=== PATIENT | female | born 1970 | race Caucasian/White ===

== ENCOUNTER → 2019-03-06 | Outpatient (CLI) | payer BC ==
[~2019-03-06] MED LIST: ADVAIR; ALBU90I INH; ALBU90OI INH; ALBU90OI6 INH; ALPR.25 PO; ALPR.5; ALPR.5 PO; AMIT50; AMOX250 PO; AZIT250 PO; Amoxicillin500 MG PO; BISA10S PR; BUPR150ER PO; BUSP10; BUSP10 PO; BUSP15 PO; BUSPAR; CIPR500 PO; CODGUAEL PO; COPEGUS; CRUTCH4 USE; CYCL10 PO; DIAZ5 PO; DOXY100 PO; EFFEXOR PO; ELET40TA; ELET40TA PO; ESCI20 PO; FAMO20 PO; FAMO40 PO; FLUSAL5005 IH; FURO20; GABA600 PO; GUAI600ER PO; HYDACE5 PO; HYDACE5325 PO; HYDACE7.5 PO; HYDR1TAB94 PO; IBUP200 PO; IBUP800 PO; INTE3SY; KETO10 PO; Keflex500 MG PO; MAGCIT300 PO; METO50ER PO; METPRE4DP PO; NAPR500 PO; OMEP20ER PO; OXYACE5T PO; OXYC10TA19 PO; PENVK500 PO; PRILOSEC PO; PROCODE120 PO; PROM25 PO; PROP10 PO; PROP160ER PO; PROP20; PROPRANOLOL; PROPRANOLOL PO; RANI150; RANI150 PO; RISP.5; RXCYCL10 PO; RXHYDACE PO; RXOXYACE PO; RXPROCODSY PO; RXPROM25 PO; RXTRAM50 PO; SERT100; SUMA25 PO; SUMA6I SC; TOPI25 PO; TRAM50 PO; Ultram50 MG PO; VENL75; VENL75ER PO; XANAX PO; [UNRECOGNIZED DRUG - OTHER]; [UNRECOGNIZED DRUG - OTHER]; [UNRECOGNIZED DRUG - OTHER]
[2019-03-08 14:52] LABS: Stool Occult Bld Immuno 1 Positive (NEGATIVE); Stool Occult Bld Immuno 2 Positive (NEGATIVE); Stool Occult Bld Immuno 3 Positive (NEGATIVE)
== END | disposition home or self-care (01) ==
LOC: LAB 14:30 → LAB SHORT 14:30
PROVIDERS: Nurse Practitioner Family
DX: K92.1 Melena (principal)
CPT/HCPCS: G0328

== ENCOUNTER 2019-05-30 07:32 | Day surgery (SDC) | payer BC ==
[~2019-05-30] VITALS: Ht 160 cm; Wt 97.6 kg
[~2019-05-30 07:32] MED LIST changes: +Augmentin 875-1 EACH PO; +CITRATE OF MAG296 ML PO
--- NOTE | 2019-05-30 08:27 | NUR ---
05/30/19 0827 Gricel Felder CALL LIGHT WITHIN REACH. FAMILY AT BEDSIDE
== END 2019-05-30 10:15 | disposition home or self-care (01) ==
LOC: ORSCSDS 07:32
PROVIDERS: Student in an Organized Health Care Education/Training Program
PROC: 0DBH8ZX Excision of Cecum, Via Natural or Artificial Opening Endoscopic, Diagnostic (ICD-10-PCS; principal; 2019-05-30 09:00)
PROC: 0DBN8ZX Excision of Sigmoid Colon, Via Natural or Artificial Opening Endoscopic, Diagnostic (ICD-10-PCS; principal; 2019-05-30 09:00)
DX: K92.1 Melena (principal); D12.0 Benign neoplasm of cecum; K63.5 Polyp of colon; K64.8 Other hemorrhoids; K64.4 Residual hemorrhoidal skin tags; G47.33 Obstructive sleep apnea (adult) (pediatric); J45.909 Unspecified asthma, uncomplicated; E66.01 Morbid (severe) obesity due to excess calories; Z68.41 Body mass index [BMI] 40.0-44.9, adult; Z79.899 Other long term (current) drug therapy; F41.8 Other specified anxiety disorders
CPT/HCPCS: 88305; J2704; J7120

== ENCOUNTER 2019-07-31 16:48 | Emergency (ER) | payer BC ==
[~2019-07-31] VITALS: Ht 160 cm; Wt 98.4 kg
[2019-07-31] MEDS ORDERED: ESCI20 (17:28)
[2019-07-31] MEDS ORDERED: Robaxin750 MG PO (17:28)
[2019-07-31 18:25] LABS: Source, Urine Clean Catch
[2019-07-31 18:27] LABS: Bilirubin, Urine Neg (Neg); Blood, Urine Neg (Neg); Glucose Qualitative, Urine Neg (Neg); Ketones, Urine Neg (Neg); Leukocyte Esterase, Urine Neg (Neg); Nitrite, Urine Neg (Neg); Protein, Urine Neg (Neg); Urobilinogen, Urine NORM (Normal)
[2019-07-31 18:33] LABS: Appearance, Urine Clear (Clear); Color, Urine Yellow (P-Yellow)
[2019-07-31 18:37] LABS: BASOPHILS ABSOLUTE AUTO 0.03 K/mm3 (0.00-0.23); BASOPHILS PERCENT AUTO 0 % (0-2); EOSINOPHILS PERCENT AUTO 2 % (0-6); Hematocrit 38.3 % (33.0-51.0); Hemoglobin 12.6 g/dL (11.5-16.0); IMMATURE GRAN ABSOLUTE AUTO 0.03 K/mm3 (0.00-0.10); IMMATURE GRAN PERCENT AUTO 0 % (0-1); LYMPHOCYTES ABSOLUTE AUTO 3.33 K/mm3 (0.84-5.20); LYMPHOCYTES PERCENT AUTO 26 % (21-46); MONOCYTES ABSOLUTE AUTO 0.63 K/mm3 (0.16-1.47); MONOCYTES PERCENT AUTO 5 % (4-13); Mean Corpuscular HGB 30.7 pg (26.0-34.0); Mean Corpuscular HGB Conc 32.9 g/dL (31.5-36.5); Mean Corpuscular Volume 93 fL (80-100); Mean Platelet Volume 10.4 fL (9.1-12.4); NEUTROPHILS ABSOLUTE AUTO 8.72 K/mm3 (1.96-9.15); NEUTROPHILS PERCENT AUTO 68 % (41-73); Platelet Count 295 K/mm3 (150-400); RDW Coefficient Variation 12.4 % (11.7-14.2); RDW Standard Deviation 42.3 fL (35.1-46.3); Red Blood Cell Count 4.11 M/mm3 (3.80-5.20); White Blood Cell Count 12.94 K/mm3 (4.00-11.30)
[2019-07-31 19:03] LABS: Alanine Aminotransfer (ALT/SGP 53 U/L (12-78); Albumin, Blood 3.5 g/dL (3.4-5.0); Albumin/Globulin Ratio 0.8 (0.8-1.8); Alk Phos 118 U/L (50-136); Anion Gap 9 mmol/L (6-16); Aspartate Aminotrans (AST/SGOT 25 U/L (12-37); Bilirubin, Total 0.4 mg/dL (0.1-1.0); Blood Urea Nitrogen 13 mg/dL (8-24); Bun/Creatinine Ratio 15.8 (12.0-20.0); CO2, Blood 23 mmol/L (21-32); Calcium, Blood 8.8 mg/dL (8.5-10.1); Chloride, Blood 107 mmol/L (98-108); Creatinine, Blood 0.83 mg/dL (0.40-1.00); Globulin, Blood 4.3 g/dL (2.2-4.0); Glomerular Filtration Rate >60 (60-); Glucose, Blood 79 mg/dL (70-99); Potassium, Blood 3.6 mmol/L (3.5-5.5); Sodium, Blood 139 mmol/L (136-145); Total Protein, Blood 7.8 g/dL (6.4-8.2)
[2019-07-31] MEDS ORDERED: Percocet 5-3251 EACH PO (19:38)
[2019-07-31] MEDS ORDERED: ONDA4ODT MM (19:38)
== END 2019-07-31 21:06 | disposition home or self-care (01) ==
LOC: ER 16:48
PROVIDERS: Physician Assistant
DX: K42.9 Umbilical hernia without obstruction or gangrene (principal); F41.9 Anxiety disorder, unspecified; Z79.899 Other long term (current) drug therapy
CPT/HCPCS: 36415; 74176; 80053; 81003; 83690; 85025; 96361; 96374; 96375; 99284-25; J1170; J2405; J3010; J7030

== ENCOUNTER 2019-12-12 09:35 | Day surgery (SDC) | payer BC ==
[~2019-12-12] VITALS: Ht 160 cm; Wt 98.4 kg
[~2019-12-12 09:35] MED LIST changes: +CARAFATE1 GM; +ESCI20; +Imitrex100 MG PO; +MELO7.5 PO; +Norco 5-325 Ta1 EACH PO; +OMEP20ER; +ONDA4ODT MM; +Percocet 5-3251 EACH PO; +Robaxin750 MG PO
== END 2019-12-12 11:40 | disposition home or self-care (01) ==
LOC: ORSCSDS 09:35
PROVIDERS: Student in an Organized Health Care Education/Training Program
PROC: 0DB88ZX Excision of Small Intestine, Via Natural or Artificial Opening Endoscopic, Diagnostic (ICD-10-PCS; principal; 2019-12-12 11:00)
PROC: 0DB58ZX Excision of Esophagus, Via Natural or Artificial Opening Endoscopic, Diagnostic (ICD-10-PCS; principal; 2019-12-12 11:00)
PROC: 0DB68ZX Excision of Stomach, Via Natural or Artificial Opening Endoscopic, Diagnostic (ICD-10-PCS; principal; 2019-12-12 11:00)
DX: R10.9 Unspecified abdominal pain (principal); K58.0 Irritable bowel syndrome with diarrhea; J45.909 Unspecified asthma, uncomplicated; Z86.19 Personal history of other infectious and parasitic diseases; F32.9 Major depressive disorder, single episode, unspecified; K20.9 Esophagitis, unspecified; K44.9 Diaphragmatic hernia without obstruction or gangrene; I10 Essential (primary) hypertension; E66.9 Obesity, unspecified; Z68.38 Body mass index [BMI] 38.0-38.9, adult; Z79.899 Other long term (current) drug therapy
CPT/HCPCS: 88305; 88342; J2405; J2704; J7120

== ENCOUNTER 2019-12-18 17:36 | Emergency (ER) | payer BC | END 2019-12-18 20:28 | disposition home or self-care (01) | LOC: ER 17:36 | DX: R07.9 Chest pain, unspecified (principal); R20.0 Anesthesia of skin; R20.2 Paresthesia of skin; F41.9 Anxiety disorder, unspecified; Z88.8 Allergy status to other drugs, medicaments and biological substances ==

== ENCOUNTER → 2020-01-11 | Outpatient (CLI) | payer BC ==
[~2020-01-11] MED LIST changes: +OMEPRAZOLE MAGN20 MG PO
== END | disposition home or self-care (01) ==
LOC: LAB EV 14:12 → LAB SHORT 14:12
DX: R05 Cough (principal); Z20.828 Contact with and (suspected) exposure to other viral communicable diseases
CPT/HCPCS: U0003

== ENCOUNTER 2020-05-24 19:20 | Emergency (ER) | payer BC ==
[~2020-05-24] VITALS: Ht 160 cm; Wt 95.2 kg
[2020-05-24 19:51] LABS: BASOPHILS ABSOLUTE AUTO 0.02 K/mm3 (0.00-0.23); BASOPHILS PERCENT AUTO 0 % (0-2); EOSINOPHILS ABSOLUTE AUTO 0.16 K/mm3 (0.00-0.68); EOSINOPHILS PERCENT AUTO 2 % (0-6); Hematocrit 37.5 % (33.0-51.0); Hemoglobin 12.8 g/dL (11.5-16.0); IMMATURE GRAN ABSOLUTE AUTO 0.02 K/mm3 (0.00-0.10); IMMATURE GRAN PERCENT AUTO 0 % (0-1); LYMPHOCYTES ABSOLUTE AUTO 2.35 K/mm3 (0.84-5.20); LYMPHOCYTES PERCENT AUTO 28 % (21-46); MONOCYTES ABSOLUTE AUTO 0.81 K/mm3 (0.16-1.47); MONOCYTES PERCENT AUTO 10 % (4-13); Mean Corpuscular HGB 30.7 pg (26.0-34.0); Mean Corpuscular HGB Conc 34.1 g/dL (31.5-36.5); Mean Corpuscular Volume 90 fL (80-100); NEUTROPHILS ABSOLUTE AUTO 5.03 K/mm3 (1.96-9.15); NEUTROPHILS PERCENT AUTO 60 % (41-73); Platelet Count 239 K/mm3 (150-400); RDW Coefficient Variation 12.8 % (11.7-14.2); RDW Standard Deviation 41.8 fL (35.1-46.3); Red Blood Cell Count 4.17 M/mm3 (3.80-5.20); White Blood Cell Count 8.39 K/mm3 (4.00-11.30)
[2020-05-24 20:05] LABS: Alanine Aminotransfer (ALT/SGP 27 U/L (12-78); Albumin, Blood 3.7 g/dL (3.4-5.0); Albumin/Globulin Ratio 0.9 (0.8-1.8); Alk Phos 99 U/L (50-136); Anion Gap 5 mmol/L (6-16); Aspartate Aminotrans (AST/SGOT 17 U/L (12-37); Bilirubin, Total 0.4 mg/dL (0.1-1.0); Blood Urea Nitrogen 14 mg/dL (8-24); Bun/Creatinine Ratio 17.2 (12.0-20.0); CO2, Blood 25 mmol/L (21-32); Calcium, Blood 9.1 mg/dL (8.5-10.1); Chloride, Blood 110 mmol/L (98-108); Creatinine, Blood 0.81 mg/dL (0.40-1.00); Glomerular Filtration Rate >60 (60-); Glucose, Blood 94 mg/dL (70-99); Potassium, Blood 3.6 mmol/L (3.5-5.5); Sodium, Blood 140 mmol/L (136-145); Total Protein, Blood 7.7 g/dL (6.4-8.2)
[2020-09-30] MEDS ORDERED: OMEP20ER PO (12:20)
[2020-09-30] MEDS ORDERED: BENZ100A PO (12:22)
[2020-09-30] MEDS ORDERED: PRED20 PO (12:22)
== END 2020-05-24 21:57 | disposition home or self-care (01) ==
LOC: ER 19:20
PROVIDERS: Physician Assistant
DX: L03.112 Cellulitis of left axilla (principal)
CPT/HCPCS: 36415; 80053; 83605; 85025; 87040; 96365; 96366; 96372-59; 96375; 99284-25; J1200; J1885; J2405; J3030; J7030

== ENCOUNTER 2020-08-03 05:13 | Emergency (ER) | payer BC ==
[~2020-08-03] VITALS: Ht 157.5 cm; Wt 113.4 kg
[2020-08-03] MEDS ORDERED: BENZ100A PO (07:00)
[2020-08-03] MEDS ORDERED: PRED20 PO (07:00)
[2020-09-30] MEDS ORDERED: OMEP20ER PO (12:20)
[2020-09-30] MEDS ORDERED: BENZ100A PO (12:22)
[2020-09-30] MEDS ORDERED: PRED20 PO (12:22)
== END 2020-08-03 07:30 | disposition home or self-care (01) ==
LOC: ER 05:13
DX: J06.9 Acute upper respiratory infection, unspecified (principal); Z79.899 Other long term (current) drug therapy
CPT/HCPCS: 71046; 93005; 93010; 99283-25

== ENCOUNTER 2020-09-09 10:07 | Emergency (ER) | payer BC ==
[~2020-09-09] VITALS: Ht 160 cm; Wt 97.1 kg
[~2020-09-09 10:07] MED LIST changes: +BENZ100A PO; +PRED20 PO
[2020-09-09 11:11] LABS: BASOPHILS ABSOLUTE AUTO 0.05 K/mm3 (0.00-0.23); BASOPHILS PERCENT AUTO 1 % (0-2); EOSINOPHILS ABSOLUTE AUTO 0.15 K/mm3 (0.00-0.68); EOSINOPHILS PERCENT AUTO 2 % (0-6); Hematocrit 42.2 % (33.0-51.0); Hemoglobin 13.8 g/dL (11.5-16.0); IMMATURE GRAN ABSOLUTE AUTO 0.02 K/mm3 (0.00-0.10); IMMATURE GRAN PERCENT AUTO 0 % (0-1); LYMPHOCYTES ABSOLUTE AUTO 2.37 K/mm3 (0.84-5.20); LYMPHOCYTES PERCENT AUTO 27 % (21-46); MONOCYTES ABSOLUTE AUTO 0.58 K/mm3 (0.16-1.47); MONOCYTES PERCENT AUTO 7 % (4-13); Mean Corpuscular HGB 29.6 pg (26.0-34.0); Mean Corpuscular HGB Conc 32.7 g/dL (31.5-36.5); Mean Corpuscular Volume 91 fL (80-100); Mean Platelet Volume 10.4 fL (9.1-12.4); NEUTROPHILS ABSOLUTE AUTO 5.53 K/mm3 (1.96-9.15); NEUTROPHILS PERCENT AUTO 64 % (41-73); Platelet Count 267 K/mm3 (150-400); RDW Coefficient Variation 12.6 % (11.7-14.2); RDW Standard Deviation 41.6 fL (35.1-46.3); Red Blood Cell Count 4.66 M/mm3 (3.80-5.20)
[2020-09-09 11:33] LABS: Alanine Aminotransfer (ALT/SGP 27 U/L (12-78); Albumin, Blood 3.8 g/dL (3.4-5.0); Albumin/Globulin Ratio 0.9 (0.8-1.8); Alk Phos 86 U/L (50-136); Anion Gap 3 mmol/L (6-16); Aspartate Aminotrans (AST/SGOT 19 U/L (12-37); Bilirubin, Total 0.5 mg/dL (0.1-1.0); Blood Urea Nitrogen 13 mg/dL (8-24); Bun/Creatinine Ratio 14.7 (12.0-20.0); CO2, Blood 28 mmol/L (21-32); Calcium, Blood 9.4 mg/dL (8.5-10.1); Chloride, Blood 109 mmol/L (98-108); Creatinine, Blood 0.89 mg/dL (0.40-1.00); Globulin, Blood 4.3 g/dL (2.2-4.0); Glomerular Filtration Rate >60 (60-); Glucose, Blood 94 mg/dL (70-99); Potassium, Blood 4.1 mmol/L (3.5-5.5); Sodium, Blood 140 mmol/L (136-145); Total Protein, Blood 8.1 g/dL (6.4-8.2)
[2020-09-30] MEDS ORDERED: OMEP20ER PO (12:20)
[2020-09-30] MEDS ORDERED: BENZ100A PO (12:22)
[2020-09-30] MEDS ORDERED: PRED20 PO (12:22)
== END 2020-09-09 14:45 | disposition home or self-care (01) ==
LOC: ER 10:07
PROVIDERS: Physician Assistant
DX: G43.909 Migraine, unspecified, not intractable, without status migrainosus (principal)
CPT/HCPCS: 36415; 70450; 80053; 85025; 93005; 93010; 96374; 96375; 99284-25; J0780; J1200

== ENCOUNTER → 2020-09-10 | Outpatient (CLI) | payer BC ==
[2020-09-12 13:38] LABS: Adenovirus F 40/41 Not Detected (NOT DETECT); Astrovirus Not Detected (NOT DETECT); Campylobacter Sp Not Detected (NOT DETECT); Cryptosporidium Not Detected (NOT DETECT); Cyclospora Cayetanensis Not Detected (NOT DETECT); E. Coli O157 Not Detected (NOT DETECT); Entamoeba Histolytica Not Detected (NOT DETECT); Enteroaggregative E. coli-EAEC Not Detected (NOT DETECT); Enteropathogenic E. coli-EPEC Detected (NOT DETECT); Enterotoxigenic E. coli-ETEC Not Detected (NOT DETECT); Giardia Lamblia Not Detected (NOT DETECT); Norovirus GI/GII Not Detected (NOT DETECT); Plesiomonas Shigelloides Not Detected (NOT DETECT); Rotavirus A Not Detected (NOT DETECT); Salmonella Sp Not Detected (NOT DETECT); Sapovirus Not Detected (NOT DETECT); Shiga Toxin-prod E. coli-STEC Not Detected (NOT DETECT); Shigella/Enteroin E. coli-EIEC Not Detected (NOT DETECT); Vibrio Cholerae Not Detected (NOT DETECT); Vibrio Sp Not Detected (NOT DETECT); Yersinia Enterocolitica Not Detected (NOT DETECT)
== END | disposition home or self-care (01) ==
LOC: LAB 21:00 → LAB SHORT 21:00 → LAB FUT 09-07 14:55
PROVIDERS: Student in an Organized Health Care Education/Training Program
DX: R19.7 Diarrhea, unspecified (principal)
CPT/HCPCS: 0097U; 83993

== ENCOUNTER 2020-10-05 08:10 | Day surgery (SDC) | payer BC ==
[~2020-10-05] VITALS: Ht 160 cm; Wt 98.0 kg
--- NOTE | 2020-10-05 10:11 | NUR ---
PATIENT ALERT, BREATHING RA, NO C/O.
--- NOTE | 2020-10-05 10:32 | NUR ---
Discharge instructions reviewed with patient. Patient verbalizes understanding. Copy given to patient to take home. Dr. Mancia spoke to patient at bedside about activity limitations and dressings.
--- NOTE | 2020-10-05 10:37 | NUR ---
PATIENT UP TO DRESS. STATES SHE HAS NUMBNESS IN HER HAND, BUT ABLE TO MOVE ALL HER FINGERS. DR. AGUILERA ASSESSED HER ARM WHEN HE WAS AT BEDSIDE POST-OP GIVING PATIENT DISCARGE INSTRUCTIONS. DAUGHTER TO DRIVE HOME.
--- NOTE | 2020-10-06 14:57 | NUR ---
10/06/20 1457 Dominique Eddy LATE ENTRY: TOMAS GREGORY RN, MONITORED PT DURING CASE.
== END 2020-10-05 10:40 | disposition home or self-care (01) ==
LOC: ORSCMMR 08:10 → ORD 10:00 → ORSCMMR 10:00
PROVIDERS: Surgery
PROC: 0JBH0ZZ Excision of Left Lower Arm Subcutaneous Tissue and Fascia, Open Approach (ICD-10-PCS; principal; 2020-10-05 10:00)
DX: D17.22 Benign lipomatous neoplasm of skin and subcutaneous tissue of left arm (principal); E78.5 Hyperlipidemia, unspecified; G47.33 Obstructive sleep apnea (adult) (pediatric); F43.10 Post-traumatic stress disorder, unspecified; B19.20 Unspecified viral hepatitis C without hepatic coma; J45.909 Unspecified asthma, uncomplicated; Z79.899 Other long term (current) drug therapy
CPT/HCPCS: 88304; J0690; J1100; J2250; J2405; J2704; J3010; J7120

== ENCOUNTER 2021-03-08 17:49 | Emergency (ER) | payer BC ==
[~2021-03-08] VITALS: Ht 157.5 cm; Wt 95.2 kg
[2021-03-08 18:48] LABS: BASOPHILS ABSOLUTE AUTO 0.05 K/mm3 (0.00-0.23); BASOPHILS PERCENT AUTO 0 % (0-2); EOSINOPHILS ABSOLUTE AUTO 0.22 K/mm3 (0.00-0.68); EOSINOPHILS PERCENT AUTO 2 % (0-6); Hematocrit 38.5 % (33.0-51.0); Hemoglobin 13.1 g/dL (11.5-16.0); IMMATURE GRAN ABSOLUTE AUTO 0.03 K/mm3 (0.00-0.10); IMMATURE GRAN PERCENT AUTO 0 % (0-1); LYMPHOCYTES ABSOLUTE AUTO 4.59 K/mm3 (0.84-5.20); LYMPHOCYTES PERCENT AUTO 40 % (21-46); MONOCYTES ABSOLUTE AUTO 0.86 K/mm3 (0.16-1.47); MONOCYTES PERCENT AUTO 8 % (4-13); Mean Corpuscular HGB 30.8 pg (26.0-34.0); Mean Corpuscular Volume 90 fL (80-100); Mean Platelet Volume 9.9 fL (9.1-12.4); NEUTROPHILS ABSOLUTE AUTO 5.75 K/mm3 (1.96-9.15); NEUTROPHILS PERCENT AUTO 50 % (41-73); Platelet Count 294 K/mm3 (150-400); RDW Coefficient Variation 13.5 % (11.7-14.2); RDW Standard Deviation 44.7 fL (35.1-46.3); Red Blood Cell Count 4.26 M/mm3 (3.80-5.20)
[2021-03-08 19:36] LABS: Alanine Aminotransfer (ALT/SGP 25 U/L (12-78); Albumin, Blood 3.7 g/dL (3.4-5.0); Albumin/Globulin Ratio 1.1 (0.8-1.8); Alk Phos 100 U/L (50-136); Anion Gap 7 mmol/L (6-16); Aspartate Aminotrans (AST/SGOT 20 U/L (12-37); Bilirubin, Total 0.5 mg/dL (0.1-1.0); Blood Urea Nitrogen 10 mg/dL (8-24); Bun/Creatinine Ratio 11.5 (12.0-20.0); CO2, Blood 24 mmol/L (21-32); Calcium, Blood 8.9 mg/dL (8.5-10.1); Chloride, Blood 110 mmol/L (98-108); Creatinine, Blood 0.87 mg/dL (0.40-1.00); Globulin, Blood 3.3 g/dL (2.2-4.0); Glomerular Filtration Rate >60 (60-); Glucose, Blood 90 mg/dL (70-99); Potassium, Blood 3.2 mmol/L (3.5-5.5); Sodium, Blood 141 mmol/L (136-145); Troponin I <0.015 ng/mL (0.000-0.040)
== END 2021-03-08 21:10 | disposition home or self-care (01) ==
LOC: ER 17:49
PROVIDERS: Physician Assistant
DX: R09.1 Pleurisy (principal); R07.89 Other chest pain; Z88.8 Allergy status to other drugs, medicaments and biological substances; Z79.899 Other long term (current) drug therapy
CPT/HCPCS: 71046; 80053; 83690; 84484; 85025; 93005; 93010; 99285-25

== ENCOUNTER 2021-04-11 10:09 | Emergency (ER) | payer BC ==
[~2021-04-11] VITALS: Ht 157.5 cm; Wt 95.2 kg
[2021-04-11 11:00] LABS: Influenza A, PCR NEGATIVE (NEGATIVE); Influenza B, PCR NEGATIVE (NEGATIVE); Resp Syncytial Virus, PCR NEGATIVE (NEGATIVE)
[2021-04-11 11:02] LABS: SARS-Cov-2 (COVID-19) PCR, MMC POSITIVE (NEGATIVE)
== END 2021-04-11 12:01 | disposition home or self-care (01) ==
LOC: ER 10:09
PROVIDERS: Physician Assistant
DX: U07.1 COVID-19 (principal); Z88.8 Allergy status to other drugs, medicaments and biological substances
CPT/HCPCS: 0241U; 71046; 99283-25

== ENCOUNTER → 2021-08-06 | Outpatient (CLI) | payer BC ==
[2021-08-18 11:11] LABS: HPV 16 Negative (Negative); HPV 18 Negative (Negative); HPV OTHER HR TYPES Negative (Negative)
== END | disposition home or self-care (01) ==
LOC: LAB SHORT 15:40 → LAB 15:40
PROVIDERS: Physician Assistant
DX: Z01.419 Encounter for gynecological examination (general) (routine) without abnormal findings (principal)
CPT/HCPCS: 87624; G0145

== ENCOUNTER 2021-11-01 06:01 | Day surgery (SDC) | payer BC ==
[~2021-11-01] VITALS: Ht 157.5 cm; Wt 97.8 kg
[~2021-11-01 06:01] MED LIST changes: +ATOR10 PO
[2021-11-01] MEDS ORDERED: NYSTOP15 GM TOP (06:23)
[2021-11-01] MEDS ORDERED: DULO60 PO (06:23)
[2021-11-01] MEDS ORDERED: ESTRADIOL1 EAC2 PO (06:24)
--- NOTE | 2021-11-01 09:26 | NUR ---
PT WAS GIVEN 2 MG OF MIDAZOLAM PREOPERATIVELY PER DR. HERNANDEZ. ONE MG WAS ORDERED WITH ANOTHER TO BE GIVEN IF PATIENT REQUIRED IT.
--- NOTE | 2021-11-01 10:35 | NUR ---
PT ARRIVED TO ROOM FROM PACU TRANSFERRED PT FROM [facility] TO BED. LCA. RR EU. HRR. MOD AMOUNT VAGINAL BLEEDING NOTED TO VASQUEZ PAD. PETE CATH DRAINING RIVERA YELLOW URINE. PT RATES PAIN 8-9/10 LOWER ABD. ORTIZ SOB AND N/V.
--- NOTE | 2021-11-01 15:05 | NUR ---
PT OOB PT GOT UP AND AMBULATED TO RESTROOM. MESH UNDERWEAR AND NEW RASHEL PAD PLACED. LARGE SPOT OF BLEEDING NOTED ON VASQUEZ PAD. VSS. MEDICATED PER ORDERS FOR LOWER ABD PAIN. PT NOW BACK TO BED, TALKING ON PHONE. DENIES ANY NEEDS AT THIS TIME.
[2021-11-01 19:36] LABS: BASOPHILS ABSOLUTE AUTO 0.03 K/mm3 (0.00-0.23); BASOPHILS PERCENT AUTO 0 % (0-2); EOSINOPHILS PERCENT AUTO 0 % (0-6); Hematocrit 35.2 % (33.0-51.0); Hemoglobin 11.9 g/dL (11.5-16.0); IMMATURE GRAN ABSOLUTE AUTO 0.08 K/mm3 (0.00-0.10); IMMATURE GRAN PERCENT AUTO 1 % (0-1); LYMPHOCYTES ABSOLUTE AUTO 1.34 K/mm3 (0.84-5.20); LYMPHOCYTES PERCENT AUTO 8 % (21-46); MONOCYTES PERCENT AUTO 4 % (4-13); Mean Corpuscular HGB 31.3 pg (26.0-34.0); Mean Corpuscular HGB Conc 33.8 g/dL (31.5-36.5); Mean Corpuscular Volume 93 fL (80-100); Mean Platelet Volume 10.1 fL (9.1-12.4); NEUTROPHILS ABSOLUTE AUTO 14.98 K/mm3 (1.96-9.15); NEUTROPHILS PERCENT AUTO 88 % (41-73); Platelet Count 259 K/mm3 (150-400); RDW Coefficient Variation 12.8 % (11.7-14.2); RDW Standard Deviation 43.5 fL (35.1-46.3); White Blood Cell Count 17.03 K/mm3 (4.00-11.30)
--- NOTE | 2021-11-01 19:46 | NUR ---
SUMMARY POD 0 FOR VAG HYSTER. VSS. PAIN MANAGED PER EMAR. TOLERATING DIET. DENIES N/V OR SOB. PETE DRAINING YELLOW URINE. AMBULATED TO RESTROOM AND BACK TWICE DURING SHIFT. PT HAD CONSISTENT BLEEDING T/O SHIFT. NOTIFIED DR LIN WHO CAME IN AND PLACED VAG PACKING. PT TOLERATED WELL. BEDSIDE REPORT COMPLETED. CARE TURNED OVER TO TORIBIO Vivas RN.
--- NOTE | 2021-11-01 19:57 | NUR ---
recvd bedside report from previous shift gabriela Godoy. pt awake in room with family member, denies need for pain medication at this time, a/o x 4, pleasant/cooperative. bed in lowest position, bed rails up x 2,
--- NOTE | 2021-11-02 01:37 | NUR ---
pt up in bathroom x 2 within 2 hours with diarrhea. on-call ob notified, no orders received. peripad saturation x 2 within 2 hours, vaginal packing largely saturated, orders to monitor until surgeon rounds in the morning, call if pt becomes hemodynamically stable.
[2021-11-02 05:20] LABS: BASOPHILS ABSOLUTE AUTO 0.02 K/mm3 (0.00-0.23); BASOPHILS PERCENT AUTO 0 % (0-2); EOSINOPHILS ABSOLUTE AUTO 0.01 K/mm3 (0.00-0.68); EOSINOPHILS PERCENT AUTO 0 % (0-6); Hematocrit 35.6 % (33.0-51.0); Hemoglobin 11.8 g/dL (11.5-16.0); IMMATURE GRAN ABSOLUTE AUTO 0.07 K/mm3 (0.00-0.10); IMMATURE GRAN PERCENT AUTO 1 % (0-1); LYMPHOCYTES ABSOLUTE AUTO 2.45 K/mm3 (0.84-5.20); LYMPHOCYTES PERCENT AUTO 16 % (21-46); MONOCYTES ABSOLUTE AUTO 1.03 K/mm3 (0.16-1.47); MONOCYTES PERCENT AUTO 7 % (4-13); Mean Corpuscular HGB 31.1 pg (26.0-34.0); Mean Corpuscular HGB Conc 33.1 g/dL (31.5-36.5); Mean Corpuscular Volume 94 fL (80-100); Mean Platelet Volume 10.4 fL (9.1-12.4); NEUTROPHILS ABSOLUTE AUTO 11.75 K/mm3 (1.96-9.15); NEUTROPHILS PERCENT AUTO 77 % (41-73); Platelet Count 270 K/mm3 (150-400); RDW Coefficient Variation 13.1 % (11.7-14.2); RDW Standard Deviation 44.8 fL (35.1-46.3); White Blood Cell Count 15.33 K/mm3 (4.00-11.30)
--- NOTE | 2021-11-02 10:20 | NUR ---
PT HAD SCANT AMOUNT BLEEDING ON RASHEL PAD DC'D PETE CATH. PT SHOWERING.
[2021-11-02] MEDS ORDERED: IBUP400 PO (15:37)
[2021-11-02] MEDS ORDERED: ACET500 PO (15:37)
[2021-11-02] MEDS ORDERED: OXAYDO5 M1 PO (15:38)
--- NOTE | 2021-11-02 16:39 | NUR ---
discharged PT PASSED VOIDING TRIAL. PAIN CONTROLLED ON PO PAIN MEDS. PASSING FLATUS AND HAVING BMS. TOLERATING DIET. VAGINAL BLEEDING LIGHT AMOUNT LIGHT RED DRAINAGE. INDEPENDENT IN ROOM. REVIEWED DC INSTRUCTIONS W/PT; VERBALIZED UNDERSTANDING. PT'S FAMILY PICKED UP PRESCRIPTIONS. IV DC'D, CATHETER INTACT. PT LEFT UNIT IN WC, WITH POSSESSIONS AND DC PAPERWORK IN HAND, ACCOMPANIED BY SISTER.
== END 2021-11-02 16:41 | disposition home or self-care (01) ==
LOC: ORSCMMR 06:01 → ORD 07:30 → EDSTATUS 07:30 → ORSCMMR 07:30 → SURS 10:32 → ORSCMMR 11-02 16:41
PROVIDERS: Obstetrics & Gynecology
PROC: 0UQF0ZZ Repair Cul-de-sac, Open Approach (ICD-10-PCS; principal; 2021-11-01 07:30)
PROC: 0UT97ZZ Resection of Uterus, Via Natural or Artificial Opening (ICD-10-PCS; principal; 2021-11-01 07:30)
PROC: 0JQC0ZZ Repair Pelvic Region Subcutaneous Tissue and Fascia, Open Approach (ICD-10-PCS; principal; 2021-11-01 07:30)
DX: N81.2 Incomplete uterovaginal prolapse (principal); N81.6 Rectocele; J45.909 Unspecified asthma, uncomplicated; E78.5 Hyperlipidemia, unspecified; E66.01 Morbid (severe) obesity due to excess calories; Z68.39 Body mass index [BMI] 39.0-39.9, adult; Z86.19 Personal history of other infectious and parasitic diseases; F32.A Depression, unspecified; D25.9 Leiomyoma of uterus, unspecified; Z79.899 Other long term (current) drug therapy
CPT/HCPCS: 36415; 85025; 88305; A9270; J0690; J1170; J1885; J2250; J2405; J2704; J3010; J7120

== ENCOUNTER 2022-03-12 12:40 | Emergency (ER) | payer BC ==
[~2022-03-12] VITALS: Ht 157.5 cm; Wt 95.2 kg
[~2022-03-12 12:40] MED LIST changes: +ACET500 PO; +DULO60 PO; +ESTRADIOL1 EAC2 PO; +IBUP400 PO; +NYSTOP15 GM TOP; +OXAYDO5 M1 PO
[2022-03-12 13:26] LABS: BASOPHILS ABSOLUTE AUTO 0.06 K/mm3 (0.00-0.23); BASOPHILS PERCENT AUTO 1 % (0-2); EOSINOPHILS ABSOLUTE AUTO 0.15 K/mm3 (0.00-0.68); EOSINOPHILS PERCENT AUTO 1 % (0-6); Hematocrit 39.1 % (33.0-51.0); Hemoglobin 13.3 g/dL (11.5-16.0); IMMATURE GRAN ABSOLUTE AUTO 0.03 K/mm3 (0.00-0.10); IMMATURE GRAN PERCENT AUTO 0 % (0-1); LYMPHOCYTES ABSOLUTE AUTO 3.02 K/mm3 (0.84-5.20); LYMPHOCYTES PERCENT AUTO 25 % (21-46); MONOCYTES ABSOLUTE AUTO 0.59 K/mm3 (0.16-1.47); MONOCYTES PERCENT AUTO 5 % (4-13); Mean Corpuscular HGB 30.8 pg (26.0-34.0); Mean Corpuscular Volume 91 fL (80-100); Mean Platelet Volume 10.3 fL (9.1-12.4); NEUTROPHILS ABSOLUTE AUTO 8.37 K/mm3 (1.96-9.15); NEUTROPHILS PERCENT AUTO 69 % (41-73); Platelet Count 339 K/mm3 (150-400); RDW Coefficient Variation 12.2 % (11.7-14.2); RDW Standard Deviation 40.1 fL (35.1-46.3); Red Blood Cell Count 4.32 M/mm3 (3.80-5.20); White Blood Cell Count 12.22 K/mm3 (4.00-11.30)
[2022-03-12 13:40] LABS: Albumin, Blood 3.7 g/dL (3.4-5.0); Albumin/Globulin Ratio 0.9 (0.8-1.8); Bilirubin, Total 0.5 mg/dL (0.1-1.0); Bun/Creatinine Ratio 10.9 (12.0-20.0); Calcium, Blood 9.4 mg/dL (8.5-10.1); Creatinine, Blood 0.83 mg/dL (0.40-1.00); Globulin, Blood 4.1 g/dL (2.2-4.0); Potassium, Blood 3.5 mmol/L (3.5-5.5); Total Protein, Blood 7.8 g/dL (6.4-8.2)
[2022-03-12 14:08] LABS: Source, Urine Clean Catch
[2022-03-12 14:14] LABS: Appearance, Urine Clear (Clear); Bilirubin, Urine Neg (Neg); Blood, Urine 1+ (Neg); Color, Urine Yellow (P-Yellow); Glucose Qualitative, Urine Neg (Neg); Ketones, Urine Neg (Neg); Leukocyte Esterase, Urine Neg (Neg); Nitrite, Urine Neg (Neg); Protein, Urine Neg (Neg); Urobilinogen, Urine NORM (Normal)
[2022-03-12 14:23] LABS: Bacteria Mod /hpf; Squamous Epithelial Cells Mod /hpf (Few)
== END 2022-03-12 18:29 | disposition home or self-care (01) ==
LOC: ER 12:40
PROVIDERS: Physician Assistant
DX: R10.32 Left lower quadrant pain (principal); Z79.899 Other long term (current) drug therapy; Z88.8 Allergy status to other drugs, medicaments and biological substances
CPT/HCPCS: 36415; 74177; 80053; 81001; 83690; 85025; J1885; Q9967

== ENCOUNTER 2022-05-10 10:18 | Day surgery (SDC) | payer BC ==
[~2022-05-10] VITALS: Ht 160 cm; Wt 96.0 kg
[2022-05-10] MEDS ORDERED: TOPI50 PO (10:49)
--- NOTE | 2022-05-10 12:01 | NUR ---
05/10/22 [address] BARRAGAN; SEE ANESTHESIA RECORDS.
--- NOTE | 2022-05-10 12:41 | NUR ---
REPORT RECEIVED FROM PALMIRA FUNEZ RN. VSS. PT ABLE TO REPOSITION SELF IN BED. PT REQUESTING PO FLUIDS AND TOLERATING THEM WELL. PT DENIES PAIN OR NAUSEA OR DISCOMFORT.
--- NOTE | 2022-05-10 12:57 | NUR ---
Patient up to Ambulate independently. Gait steady. Discharge instructions reviewed with patient. Patient verbalizes understanding. Copy given to patient to take home. Patient States Post-Procedure ride home has been arranged. Discharged via wheelchair to private car for ride home. PT BELONGINGS RETURNED TO PT.
== END 2022-05-10 22:48 | disposition home or self-care (01) ==
LOC: ORSCMMR 10:18 → ORD 12:00 → ORSCMMR 12:00
PROVIDERS: Student in an Organized Health Care Education/Training Program
PROC: 0DB58ZX Excision of Esophagus, Via Natural or Artificial Opening Endoscopic, Diagnostic (ICD-10-PCS; principal; 2022-05-10 12:00)
PROC: 0DB68ZX Excision of Stomach, Via Natural or Artificial Opening Endoscopic, Diagnostic (ICD-10-PCS; principal; 2022-05-10 12:00)
DX: R13.10 Dysphagia, unspecified (principal); K44.9 Diaphragmatic hernia without obstruction or gangrene; K29.70 Gastritis, unspecified, without bleeding; K21.9 Gastro-esophageal reflux disease without esophagitis; E66.9 Obesity, unspecified; Z68.37 Body mass index [BMI] 37.0-37.9, adult; Z86.19 Personal history of other infectious and parasitic diseases; Z79.899 Other long term (current) drug therapy
CPT/HCPCS: 88305; 88342; J2704; J7120

== ENCOUNTER 2023-01-26 14:39 | Emergency (ER) | payer BC ==
[~2023-01-26] VITALS: Ht 157.5 cm; Wt 95.2 kg
[~2023-01-26 14:39] MED LIST changes: +TOPI50 PO
[2023-01-26 15:23] LABS: BASOPHILS ABSOLUTE AUTO 0.03 K/mm3 (0.00-0.23); BASOPHILS PERCENT AUTO 0 % (0-2); EOSINOPHILS ABSOLUTE AUTO 0.37 K/mm3 (0.00-0.68); EOSINOPHILS PERCENT AUTO 5 % (0-6); Hematocrit 37.8 % (33.0-51.0); Hemoglobin 12.7 g/dL (11.5-16.0); IMMATURE GRAN ABSOLUTE AUTO 0.02 K/mm3 (0.00-0.10); IMMATURE GRAN PERCENT AUTO 0 % (0-1); LYMPHOCYTES ABSOLUTE AUTO 2.87 K/mm3 (0.84-5.20); LYMPHOCYTES PERCENT AUTO 36 % (21-46); MONOCYTES ABSOLUTE AUTO 0.38 K/mm3 (0.16-1.47); MONOCYTES PERCENT AUTO 5 % (4-13); Mean Corpuscular HGB 31.3 pg (26.0-34.0); Mean Corpuscular HGB Conc 33.6 g/dL (31.5-36.5); Mean Corpuscular Volume 93 fL (80-100); Mean Platelet Volume 9.6 fL (9.1-12.4); NEUTROPHILS ABSOLUTE AUTO 4.23 K/mm3 (1.96-9.15); NEUTROPHILS PERCENT AUTO 54 % (41-73); Platelet Count 323 K/mm3 (150-400); RDW Coefficient Variation 12.4 % (11.7-14.2); RDW Standard Deviation 42.5 fL (35.1-46.3); Red Blood Cell Count 4.06 M/mm3 (3.80-5.20)
[2023-01-26 15:34] LABS: Albumin, Blood 3.7 g/dL (3.4-5.0); Albumin/Globulin Ratio 0.8 (0.8-1.8); Bilirubin, Total 0.5 mg/dL (0.1-1.0); Bun/Creatinine Ratio 11.5 (12.0-20.0); Creatinine, Blood 1.13 mg/dL (0.40-1.00); Globulin, Blood 4.4 g/dL (2.2-4.0); Potassium, Blood 3.5 mmol/L (3.5-5.5); Total Protein, Blood 8.1 g/dL (6.4-8.2)
[2023-01-26 17:45] VITALS: BP 139/91
== END 2023-01-26 18:00 | disposition home or self-care (01) ==
LOC: ER 14:39
PROVIDERS: Physician Assistant
DX: I10 Essential (primary) hypertension (principal); Z79.899 Other long term (current) drug therapy
CPT/HCPCS: 71046; 80053; 84484; 85025; 93005; 93010; 99285-25; A9270

== ENCOUNTER 2023-12-02 18:28 | Emergency (ER) | payer BC, OTHER ==
[~2023-12-02] VITALS: Ht 157.5 cm; Wt 95.2 kg
[2023-12-02 19:13] LABS: BASOPHILS ABSOLUTE AUTO 0.04 K/mm3 (0.00-0.23); BASOPHILS PERCENT AUTO 0 % (0-2); EOSINOPHILS PERCENT AUTO 2 % (0-6); Hematocrit 35.5 % (33.0-51.0); Hemoglobin 11.9 g/dL (11.5-16.0); IMMATURE GRAN ABSOLUTE AUTO 0.03 K/mm3 (0.00-0.10); IMMATURE GRAN PERCENT AUTO 0 % (0-1); LYMPHOCYTES ABSOLUTE AUTO 3.38 K/mm3 (0.84-5.20); LYMPHOCYTES PERCENT AUTO 31 % (21-46); MONOCYTES ABSOLUTE AUTO 0.66 K/mm3 (0.16-1.47); MONOCYTES PERCENT AUTO 6 % (4-13); Mean Corpuscular HGB 30.6 pg (26.0-34.0); Mean Corpuscular HGB Conc 33.5 g/dL (31.5-36.5); Mean Corpuscular Volume 91 fL (80-100); Mean Platelet Volume 10.1 fL (9.1-12.4); NEUTROPHILS ABSOLUTE AUTO 6.76 K/mm3 (1.96-9.15); NEUTROPHILS PERCENT AUTO 61 % (41-73); Platelet Count 271 K/mm3 (150-400); RDW Coefficient Variation 13.3 % (11.7-14.2); RDW Standard Deviation 44.5 fL (35.1-46.3); Red Blood Cell Count 3.89 M/mm3 (3.80-5.20); White Blood Cell Count 11.07 K/mm3 (4.00-11.30)
[2023-12-02 19:27] LABS: Albumin, Blood 3.4 g/dL (3.4-5.0); Albumin/Globulin Ratio 0.9 (0.8-1.8); Bilirubin, Total 0.5 mg/dL (0.1-1.0); Bun/Creatinine Ratio 21.6 (12.0-20.0); Calcium, Blood 8.6 mg/dL (8.5-10.1); Creatinine, Blood 0.92 mg/dL (0.40-1.00); Globulin, Blood 3.7 g/dL (2.2-4.0); Potassium, Blood 3.5 mmol/L (3.5-5.5); Total Protein, Blood 7.1 g/dL (6.4-8.2)
[2023-12-02] MEDS ORDERED: Methocarbamol500 MG PO (19:31)
[2023-12-02] MEDS ORDERED: CLIMARA1 EACH TOP (19:31)
[2023-12-02] MEDS ORDERED: PRILOSEC OTC20 MG PO (19:32)
[2023-12-02] MEDS ORDERED: Morphine Sulfate 4 MG/1 ML Injection IV ONE (23:35)
[2023-12-02] MEDS ORDERED: Ketorolac Tromethamine 15mg Vial IV ONE (23:35)
[2023-12-03] MEDS ORDERED: IBUP600 PO (00:53)
[2023-12-03] MEDS ORDERED: ACET500 PO (00:53)
[2023-12-03 01:00] VITALS: BP 120/77
== END 2023-12-03 01:13 | disposition home or self-care (01) ==
LOC: ER 18:28
PROVIDERS: Emergency Medicine
DX: R07.89 Other chest pain (principal); R55 Syncope and collapse; Z79.899 Other long term (current) drug therapy
CPT/HCPCS: 70450; 71046; 71275; 74174; 80053; 84484; 85025; 93005; 93010; 96374-59; 96375-59; 99285-25; J1885; J2270; Q9967

== ENCOUNTER → 2024-01-15 | Outpatient (CLI) | payer BC, OTHER ==
[~2024-01-15] MED LIST changes: +CLIMARA1 EACH TOP; +IBUP600 PO; +Methocarbamol500 MG PO; +PRILOSEC OTC20 MG PO
== END ==
LOC: LAB 14:44 → LAB SHORT 14:44
DX: N39.0 Urinary tract infection, site not specified (principal)
CPT/HCPCS: 87086

== ENCOUNTER 2024-03-21 11:05 | Emergency (ER) | payer BC, OTHER ==
[~2024-03-21] VITALS: Ht 160 cm; Wt 88.5 kg
[2024-03-21 12:08] LABS: BASOPHILS ABSOLUTE AUTO 0.02 K/mm3 (0.00-0.23); BASOPHILS PERCENT AUTO 0 % (0-2); EOSINOPHILS ABSOLUTE AUTO 0.09 K/mm3 (0.00-0.68); EOSINOPHILS PERCENT AUTO 1 % (0-6); Hematocrit 42.6 % (33.0-51.0); Hemoglobin 14.1 g/dL (11.5-16.0); IMMATURE GRAN ABSOLUTE AUTO 0.01 K/mm3 (0.00-0.10); IMMATURE GRAN PERCENT AUTO 0 % (0-1); LYMPHOCYTES ABSOLUTE AUTO 3.55 K/mm3 (0.84-5.20); LYMPHOCYTES PERCENT AUTO 43 % (21-46); MONOCYTES ABSOLUTE AUTO 0.49 K/mm3 (0.16-1.47); MONOCYTES PERCENT AUTO 6 % (4-13); Mean Corpuscular HGB 30.1 pg (26.0-34.0); Mean Corpuscular HGB Conc 33.1 g/dL (31.5-36.5); Mean Corpuscular Volume 91 fL (80-100); Mean Platelet Volume 10.5 fL (9.1-12.4); NEUTROPHILS ABSOLUTE AUTO 4.12 K/mm3 (1.96-9.15); NEUTROPHILS PERCENT AUTO 50 % (41-73); Platelet Count 234 K/mm3 (150-400); RDW Coefficient Variation 12.8 % (11.7-14.2); RDW Standard Deviation 41.9 fL (35.1-46.3); Red Blood Cell Count 4.68 M/mm3 (3.80-5.20); White Blood Cell Count 8.28 K/mm3 (4.00-11.30)
[2024-03-21 12:25] LABS: Albumin, Blood 3.7 g/dL (3.4-5.0); Albumin/Globulin Ratio 0.9 (0.8-1.8); Bilirubin, Total 0.5 mg/dL (0.1-1.0); Bun/Creatinine Ratio 9.4 (12.0-20.0); Calcium, Blood 9.4 mg/dL (8.5-10.1); Creatinine, Blood 0.96 mg/dL (0.40-1.00); Globulin, Blood 4.1 g/dL (2.2-4.0); Potassium, Blood 3.6 mmol/L (3.5-5.5); Total Protein, Blood 7.8 g/dL (6.4-8.2)
[2024-03-21] MEDS ORDERED: Omeprazole 20 MG CapCR PO ONE (16:30)
[2024-03-21] MEDS ORDERED: NS 1,000 ML IV SCH (16:30)
[2024-03-21] MEDS ORDERED: Ondansetron HCl 2 MG / ML 2ML Vial IV ONE (16:30)
[2024-03-21 17:43] VITALS: BP 144/94
== END 2024-03-21 18:25 | disposition home or self-care (01) ==
LOC: ER 11:05
PROVIDERS: Physician Assistant
DX: J10.1 Influenza due to other identified influenza virus with other respiratory manifestations (principal); E86.0 Dehydration; Z79.899 Other long term (current) drug therapy
CPT/HCPCS: 80053; 83690; 85025; 96361; 96374; 99284-25; A9270; J2405; J7030

== ENCOUNTER 2025-02-11 05:42 | Day surgery (SDC) | payer BC, OTHER ==
[2025-02-11] VITALS (9 sets, daily range): BP systolic 104–143; BP diastolic 70–87
[~2025-02-11] VITALS: Ht 160 cm; Wt 96.1 kg
[~2025-02-11 05:42] MED LIST changes: -ATOR10 PO; +ATOR40TA PO; +Cymbalta20 MG PO; -DULO60 PO
[2025-02-11] MEDS ORDERED: CeFAZolin Sodium 2,000 MG in NS 100 ML IV SCH (07:10)
--- NOTE | 2025-02-11 07:16 | NUR ---
NOSE STUD TO LEFT SIDE NOSE TAPED IN PLACE. WAIVER SIGNED PER PATIENT REQUEST.
[2025-02-11] MEDS ORDERED: FentaNYL Citrate 50 MCG/ML 2 ML Injection ONE (07:18)
[2025-02-11] MEDS ORDERED: Midazolam HCl 1MG / ML 2ML Vial ONE (07:18)
[2025-02-11] MEDS ORDERED: Bupivacaine 0.5% HCl 5 MG/ML 30MLVIAL ONE (07:21)
[2025-02-11] MEDS ORDERED: Dexamethasone Sod Phos 10 MG/ML 1ML VIAL ONE (08:03)
[2025-02-11] MEDS ORDERED: Ondansetron HCl 2 MG / ML 2ML Vial ONE (08:03)
[2025-02-11] MEDS ORDERED: FentaNYL Citrate 50 MCG/ML 2 ML Injection IV PRN ×2 (08:10→08:15)
[2025-02-11] MEDS ORDERED: Ondansetron HCl 2 MG / ML 2ML Vial IV PRN (08:10)
[2025-02-11] MEDS ORDERED: HYDROmorphone HCl/Pf 1MG SYR IV PRN ×2 (08:10→08:15)
[2025-02-11] MEDS ORDERED: HYDROcodone 5-APAP 325 TAB PO PRN (08:35)
--- NOTE | 2025-02-11 09:22 | NUR ---
Discharge instructions reviewed with patient. Patient verbalizes understanding. Copy given to patient to take home. Dressing X2 c/d/i. Prescription placed in discharge folder. Patient States Post-Procedure ride home has been arranged. Discharged via wheelchair to private car for ride home.
== END 2025-02-11 09:24 | disposition home or self-care (01) ==
LOC: ORSCMMR 05:42 → ORD 07:30 → ORSCMMR 07:30
PROVIDERS: Surgery
PROC: 05HN33Z Insertion of Infusion Device into Left Internal Jugular Vein, Percutaneous Approach (ICD-10-PCS; principal; 2025-02-11 07:30)
PROC: B544ZZA Ultrasonography of Left Jugular Veins, Guidance (ICD-10-PCS; principal; 2025-02-11 07:30)
PROC: 0JH63WZ Insertion of Totally Implantable Vascular Access Device into Chest Subcutaneous Tissue and Fascia, Percutaneous Approach (ICD-10-PCS; principal; 2025-02-11 07:30)
DX: C50.411 Malignant neoplasm of upper-outer quadrant of right female breast (principal); G47.33 Obstructive sleep apnea (adult) (pediatric); J45.909 Unspecified asthma, uncomplicated; K21.9 Gastro-esophageal reflux disease without esophagitis; F43.10 Post-traumatic stress disorder, unspecified; E66.9 Obesity, unspecified; Z68.37 Body mass index [BMI] 37.0-37.9, adult; Z79.899 Other long term (current) drug therapy; Z17.1 Estrogen receptor negative status [ER-]; Z17.22 Progesterone receptor negative status; Z17.32 Human epidermal growth factor receptor 2 negative status; E78.5 Hyperlipidemia, unspecified; F32.A Depression, unspecified
CPT/HCPCS: 77001; C1788; J0690; J1100; J1642; J2250; J2405; J2704; J3010; J7120

== ENCOUNTER → 2025-03-03 | Outpatient (CLI) | payer BC, OTHER ==
[2025-03-03 09:20] LABS: Hematocrit 36.4 % (33.0-51.0); Hemoglobin 12.4 g/dL (11.5-16.0); Mean Corpuscular HGB Conc 34.1 g/dL (31.5-36.5); Mean Corpuscular Volume 91 fL (80-100); NRBC ABSOLUTE 0.00 K/mm3 (0.00-0.02); NRBC Auto 0.0 /100 WBC (0.0-0.2); Platelet Count 271 K/mm3 (150-400); RDW Coefficient Variation 12.0 % (11.7-14.2); RDW Standard Deviation 39.3 fL (35.1-46.3)
[2025-03-03 09:54] LABS: BAND PERCENT MAN 4 % (0-8); BASOPHILS ABSOLUTE MAN 0.00 K/mm3 (0.00-0.23); BASOPHILS PERCENT MAN 0 % (0-2); EOSINOPHILS ABSOLUTE MAN 0.09 K/mm3 (0.00-0.68); EOSINOPHILS PERCENT MAN 1 % (0-6); LYMPHOCYTES ABSOLUTE MAN 3.31 K/mm3 (0.84-5.20); LYMPHOCYTES PERCENT MAN 35 % (21-46); METAMYELOCYTE ABSOLUTE MAN 0.28 K/mm3 (0.00-0.00); METAMYELOCYTE PERCENT MAN 3 % (0-0); MONOCYTES ABSOLUTE MAN 0.37 K/mm3 (0.16-1.47); MONOCYTES PERCENT MAN 4 % (4-13); MYELOCYTE ABSOLUTE MAN 0.18 K/mm3 (0.00-0.00); MYELOCYTE PERCENT MAN 2 % (0-0); NEUTROPHILS ABSOLUTE MAN 5.21 K/mm3 (1.96-9.15); SEG NEUTROPHILS PERCENT MAN 51 % (41-73)
== END ==
LOC: LAB 08:41 → LAB SHORT 08:41
PROVIDERS: Internal Medicine Hematology & Oncology
DX: C50.919 Malignant neoplasm of unspecified site of unspecified female breast (principal)
CPT/HCPCS: 85025